=== PATIENT | male | born 1950 | race Caucasian/White ===

== ENCOUNTER 2018-04-07 14:30 | Inpatient (IN) | payer OTHER ==
[~2018-04-07] VITALS: Ht 180.3 cm; Wt 103.3 kg
--- NOTE | ~2018-04-07 | EC ---
PATIENT:CARINA RODRIGUEZ DATE OF SERVICE: 04/07/18 SEX: M MEDICAL RECORD: [id number] DATE OF : [birth year] LOCATION:D.M2 D.210 AGE OF PATIENT: 67 ADMISSION DATE: 04/07/18 REFERRING PHYSICIAN: INTERPRETING PHYSICIAN: ISABEL UMANA MD ECHOCARDIOGRAM REPORT ECHO CHARGES 4 ECHO COMPLETE Date: 04/10/18 CLINICAL DIAGNOSIS: A-FIB ECHOCARDIOGRAPHIC MEASUREMENTS (adult normal given) AC root (d.<3.7cm) 2.8 cm LV Septum d (<1.2 cm> 1.5 cm Valve Excursion 1.9 cm LV Septum (systole) 2.2 cm Left Atria (s.<4.0cm> 6.5 cm LVPW d(<1.2cm) 1.4 cm RV (d.<2.3cm) 2.7 cm LVPW (sytole) 1.9 cm LV diastole(<5.6CM) 5.4 cm MV E-F(>70mm/sec) cm LV systole 3.3 cm LVOT Diameter 1.9 cm MV exc.(>10mm) cm Est.ejection fraction (50-75%) % DOPPLER: LVIT cm/sec A cm/sec E 161 cm/sec LA cm/sec RVSP 35.2 mmHg LVOT 102 cm/sec AOP1/2T m/s Asc. Ao 172 cm/sec RVOT 62.0 cm/sec RA cm/sec PA 127 cm/sec AV Gradient Peak 12.0 mmHg AV Mean 5.5 mmHg AV Area 1.6 cm MV Gradient Peak 9.6 mmHg MV Mean 3.2 mmHg MV Area cm COMMENTS: Winder Helper: 1 JOSE A [place] Premium Card Cancellation Clerk: 4 Dr. Umana TAPE# PACS Pericardial Effusion N DATE OF SERVICE: PROCEDURE: Transthoracic echocardiogram. FINDINGS: 1. Left ventricle has evidence of left ventricular hypertrophy. The ejection fraction appears to be preserved at 50% to 55%. There is no obvious wall motion abnormality. The patient is mildly bradycardic through the exam. 2. The left atrium is severely dilated. 3. The aortic valve is sclerotic, but otherwise normal. ECHOCARDIOGRAM REPORT [id number] CARINA RODRIGUEZ 4. The mitral valve has mild mitral regurgitation. 5. Tricuspid valve has moderate tricuspid regurgitation with right ventricular systolic pressure of 35 mmHg. 6. The right ventricle shows mild right ventricular enlargement. 7. The right atrium has severe right atrial enlargement. 8. The pulmonic valve is normal. CONCLUSIONS: The patient has evidence of left ventricular hypertrophy, ejection fraction is low normal, and severely dilated left and right atrium. TRANSINT:[id number] Voice Confirmation ID: [id number] DOCUMENT ID: [id number] ISABEL UMANA MD at 0849 CC: [id number] DICTATION DATE: 04/10/18 1352 HL7 INTERFACE DEVELOPER: 04/10/18 1402 DIS IN 04/11/18 [facility] [address] [id number]
--- NOTE | ~2018-04-07 | HP ---
PATIENT: CARINA RODRIGUEZ MEDICAL RECORD: [id number] ACCOUNT: [id number] LOCATION:[address] : [birth year] ADMISSION DATE: 04/07/18 PCP: AKASH EDWARDS MD HISTORY AND PHYSICAL EXAMINATION DATE OF ADMISSION: 04/07/2018 CHIEF COMPLAINT: Foot ulcer. HISTORY OF PRESENT ILLNESS: This is a 67-year-old white male with diabetes, who was sent to [place] from Dr. Avila's office in [place] for IV antibiotics for a diabetic right foot ulcer. The patient states Dr. Avila has been treating this for several weeks. Culture has returned with Klebsiella pneumoniae, bacteroides fragilis, MRSA, and extended spectrum beta lactamase positive infection. The culture and sensitivity was brought with him and is placed in his chart. PAST MEDICAL HISTORY: 1. Diabetes. 2. Paraplegia since a fall in 2009 with a T12 fracture, followed by Dr. Dewitt at [facility]. 3. Paroxysmal atrial fibrillation. 4. History of non-Hodgkin's lymphoma, in remission for years. 5. Pulmonary fibrosis. 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 ALLERGIES: No known drug allergies. HOME MEDICATIONS: Xarelto 20 mg a day, sotalol 80 mg twice a day, Lasix 20 mg 2 pills twice a day, simvastatin 40 mg at bedtime, tramadol 50 mg q.4 hours p.r.n. pain, fish old 2 pills daily, Levemir insulin, metoprolol 25 mg once a day, digoxin 125 mcg once a day, gabapentin 600 mg 4 times a day, Lexapro 20 mg once a day, trazodone 50 mg at bedtime, VESIcare 10 mg once a day. SOCIAL HISTORY: He is disabled from his fall. He is . HABITS: Never smoked. No alcohol or drugs. FAMILY HISTORY: Father at 69 of cancer, mother is with coronary artery disease and a sister at 50 due to complications of diabetes. REVIEW OF SYSTEMS: GENERAL: No major weight changes. HEENT: No sinus or allergy problems. RESPIRATORY: Has history of pulmonary fibrosis. CARDIAC: Has atrial fibrillation. GASTROINTESTINAL: Has some heartburn. GENITOURINARY: Has a suprapubic cath due to paraplegia status. MUSCULOSKELETAL: Has diffuse joint aches and pains. NEUROLOGIC: Paraplegia since his fall in 2009. PSYCHIATRIC: Has some depression. HISTORY AND PHYSICAL [id number] CARINA RODRIGUEZ PHYSICAL EXAMINATION: VITAL SIGNS: Temperature 99.2, blood pressure 109/70, O2 saturation 93%. GENERAL: He is awake and alert, lying comfortably in bed. HEENT: Unremarkable. NECK: Supple. HEART: Regular rate and rhythm. LUNGS: Clear. ABDOMEN: Soft. Suprapubic catheter in place. EXTREMITIES: The right foot is in a dressing at this time. LABORATORY DATA: Sent from Dr. Avila's office in [place] shows extended spectrum beta lactamase positive infection, Klebsiella pneumoniae, bacteroides fragilis, MRSA. Labs done here white count is 8300, hemoglobin 10.5, hematocrit 34.0. Basic metabolic panel is unremarkable. Liver enzymes were okay. Magnesium is 2.2. Lactic acid level 1.0. ProBNP 2442. ASSESSMENT: 1. Diabetic foot ulcer. 2. Diabetes. 3. Paraplegia. 4. Atrial fibrillation. PLAN: We will consult Dr. Ortiz for infectious disease, at Dr. Avila's suggestion, will consult Dr. Aquino. Antibiotics for the foot ulcer. Other tests or procedures as warranted. TRANSINT:[id number] Voice Confirmation ID: [id number] DOCUMENT ID: [id number] AKASH EDWARDS MD at 0852 CC: [id number] DICTATION DATE: 04/08/18826 BRUSH FILLER HAND: 04/08/18 0910 ADM IN [id number] [place] [address]
[~2018-04-07 14:30] MED LIST: ACETAMINOPHEN500 M1 PO; ALEVE220 MG PO; BETAPACE 80 MG80 MG PO; BUSPAR5 MG PO; CALCIUM 600+D T1 TA1 PO; DESYREL50 MG PO; DUONEB 2.5-0.5 M3 ML UPD; K-DUR20 MEQ PO; LANOXIN250 MCG PO; LANTUS SOL100 UNIT/1 SQ; LASIX40 MG PO; LEVEMIR100 U/M1; LEXAPRO20 MG PO; LOPRESSOR50 MG PO; MACROBID100 MG PO; MULTI-DAY VITAM1 TAB PO; NEURONTIN600 MG PO; OXYBUTYNIN CHLOR5 MG PO; XARELTO20 MG PO; ZOCOR40 MG PO; ZYRTEC10 MG PO
[2018-04-07] MEDS ORDERED: ASCORBIC ACID500 MG PO (14:38)
[2018-04-07] MEDS ORDERED: LEXAPRO20 MG PO (14:39)
[2018-04-07] MEDS ORDERED: VESICARE10 MG PO (14:40)
[2018-04-07] MEDS ORDERED: LASIX40 MG PO (14:41)
[2018-04-07] MEDS ORDERED: [UNRECOGNIZED DRUG - CODE] (14:43)
[2018-04-07] MEDS ORDERED: MYBETRIQ (14:43)
[2018-04-07] MEDS ORDERED: ULTRAM50 MG PO (14:44)
[2018-04-07 15:28] LABS: BASOPHILS 0.5 % (0-2); EOSINOPHILS 1.8 % (0-7); HEMOGLOBIN 10.5 g/dL (13.5-17.5); IMMATURE GRANULOCYTES 0.5 % (0-5); LYMPHOCYTES 27.6 % (15-50); MCH 27.9 pg (26.0-34.0); MCHC 30.9 g/dL (31.0-37.0); MCV 90.4 fL (80.0-100.0); MEAN PLATELET VOLUME 11.9 fL (7.4-10.4); MONOCYTES 13.6 % (2-11); PLATELET COUNT 254 10x3/uL (130-400); RBC 3.76 10x6/uL (4.20-6.10); RDW 17.1 % (11.5-14.5); WBC 8.3 10x3/uL (4.8-10.8)
[2018-04-07 15:31] VITALS: BP 133/46
[2018-04-07 15:37] LABS: ALBUMIN 3.1 g/dL (3.4-5.0); ANION GAP 9.9 mmol/L (8-16); BILIRUBIN - TOTAL 0.34 mg/dL (0.2-1.3); CALCIUM 11.3 mg/dL (8.5-10.1); CARBON DIOXIDE 31.6 mmol/L (21.0-32.0); CREATININE - SERUM 1.1 mg/dL (0.6-1.3); POTASSIUM - SERUM 4.5 mmol/L (3.5-5.1); PROTEIN - SERUM 6.3 g/dL (6.4-8.2)
[2018-04-07 17:08] LABS: MAGNESIUM - SERUM 2.2 mg/dL (1.8-2.4)
[2018-04-07 20:00] VITALS: BP 150/58
[2018-04-08 03:25] VITALS: BP 130/52; BMI 30.4
[2018-04-08 04:00] VITALS: BP 123/50
[2018-04-08 07:57] VITALS: BP 115/51
[2018-04-08 11:18] VITALS: BP 136/50
[2018-04-08 12:43] VITALS: BMI 30.4
[2018-04-08 15:48] VITALS: BP 135/61
[2018-04-08 20:00] VITALS: BP 120/45
[2018-04-09 04:00] VITALS: BP 178/58
[2018-04-09 06:18] LABS: BASOPHILS 0.7 % (0-2); HEMATOCRIT 33.9 % (42.0-54.0); HEMOGLOBIN 10.6 g/dL (13.5-17.5); IMMATURE GRANULOCYTES 0.7 % (0-5); LYMPHOCYTES 22.6 % (15-50); MCHC 31.3 g/dL (31.0-37.0); MCV 89.4 fL (80.0-100.0); MEAN PLATELET VOLUME 11.5 fL (7.4-10.4); MONOCYTES 17.4 % (2-11); NEUTROPHILS 55.6 % (40-80); PLATELET COUNT 235 10x3/uL (130-400); RBC 3.79 10x6/uL (4.20-6.10); RDW 17.1 % (11.5-14.5); WBC 7.3 10x3/uL (4.8-10.8)
[2018-04-09 06:37] LABS: ANION GAP 9.7 mmol/L (8-16); CALCIUM 10.7 mg/dL (8.5-10.1); CARBON DIOXIDE 27.7 mmol/L (21.0-32.0); CREATININE - SERUM 1.1 mg/dL (0.6-1.3); POTASSIUM - SERUM 4.4 mmol/L (3.5-5.1)
[2018-04-09 11:50] VITALS: Ht 180.3 cm; Wt 103.3 kg
[2018-04-09 12:30] VITALS: BP 139/66
[2018-04-09 17:13] VITALS: BP 140/59
[2018-04-09 21:38] VITALS: BP 122/58
[2018-04-10 00:40] VITALS: BP 117/51
[2018-04-10 06:28] VITALS: BP 110/45
[2018-04-10 08:31] VITALS: BP 113/71
[2018-04-10 16:20] VITALS: BP 135/52
[2018-04-10 21:10] VITALS: BP 110/53
[2018-04-11 01:02] VITALS: BP 118/48
[2018-04-11 05:51] VITALS: BP 128/63
[2018-04-11 08:30] VITALS: BP 124/62
[2018-04-11] MEDS ORDERED: VIBRAMYCIN 100100 MG PO (09:54)
[2018-04-11] MEDS ORDERED: AUGMENTIN 875-11 TAB PO (09:55)
== END 2018-04-11 15:24 | disposition home or self-care (01) | DRG 638 ==
LOC: D.ER 14:30 → D.EDHOLD 15:40 → D.M2 15:40
PROVIDERS: Emergency Medicine; Family Medicine
DX: E11.621 Type 2 diabetes mellitus with foot ulcer (principal); G82.20 Paraplegia, unspecified; L97.419 Non-pressure chronic ulcer of right heel and midfoot with unspecified severity; M60.073 Infective myositis, right foot; B96.1 Klebsiella pneumoniae [K. pneumoniae] as the cause of diseases classified elsewhere; B95.62 Methicillin resistant Staphylococcus aureus infection as the cause of diseases classified elsewhere; N31.9 Neuromuscular dysfunction of bladder, unspecified; E11.51 Type 2 diabetes mellitus with diabetic peripheral angiopathy without gangrene; N50.89 Other specified disorders of the male genital organs; Z86.73 Personal history of transient ischemic attack (TIA), and cerebral infarction without residual deficits; Z85.72 Personal history of non-Hodgkin lymphomas